=== PATIENT | male | born 1975 | race Two or more races ===

== ENCOUNTER 2018-01-15 12:38 | Outpatient (CLI) | payer OTHER | END 2018-01-15 12:45 | disposition home or self-care (01) | LOC: RAD 12:38 | DX: Z11.3 Encounter for screening for infections with a predominantly sexual mode of transmission (principal) ==

== ENCOUNTER 2021-01-23 15:36 | Emergency (ER) | payer OTHER ==
[~2021-01-23] VITALS: Ht 185.4 cm; Wt 122.5 kg
== END 2021-01-23 18:33 | disposition home or self-care (01) ==
LOC: ER 15:36
DX: J32.8 Other chronic sinusitis (principal); J00 Acute nasopharyngitis [common cold]; B34.9 Viral infection, unspecified